=== PATIENT | female | born 1955 | race Caucasian/White ===

== ENCOUNTER 2018-09-07 12:59 | Emergency (ER) | payer SELFPAY ==
--- NOTE | 2018-09-07 16:54 | CT ---
CT ARTERIOGRAM CHEST WITH IV CONTRAST AND 3D MIP IMAGIN09/07/18 HISTORY: Chest pain. Dyspnea. FINDINGS: There is good contrast opacification of pulmonary arteries and thoracic aorta with normal branching o f the great vessels at the aortic arch. No pleural fluid or pneumothorax. Nonspecific lymph nodes thr oughout the mediastinum are most notable at the paraesophageal level. Postoperative changes of the l eft breast and left axilla. Hyperdense stones in a dependent portion of the gallbladder lumen. IMPRESSION: No CT evidence of pulmonary embolus. Cholelithiasis. POS: BST
== END 2018-09-07 16:07 | disposition home or self-care (01) ==
LOC: ERS 12:59
DX: R07.9 Chest pain, unspecified (principal); E03.9 Hypothyroidism, unspecified; I10 Essential (primary) hypertension; E78.5 Hyperlipidemia, unspecified; Z79.899 Other long term (current) drug therapy
CPT/HCPCS: 36415; 71275; 93005

== ENCOUNTER 2019-05-13 16:02 | Inpatient (IN) | payer SELFPAY ==
[2019-05-13 16:28] LABS: #Eosinphils 0.1 thou/uL (0.0-0.7); #Lymphocytes 2.3 thou/uL (1.20-3.40); #Monocytes 1.6 thou/uL (0.11-0.59); #Neutrophils 15.4 thou/uL (1.40-6.50); %Basophils 0.1 % (0.0-1.0); %Eosinophils 0.5 % (0.0-10.0); %Monocytes 8.3 % (0.0-10.0); %Neutrophils 79.1 % (42.0-75.0); Hemoglobin 13.7 g/dL (12.0-16.0); Mean Corpuscular HGB CONC 35.1 g/dL (32.0-36.0); Mean Corpuscular Hemoglobin 29.6 pg (27.0-31.0); Mean Corpuscular Volume 84.4 fL (78.0-98.0); Mean Platelet Volume 6.2 fL (7.4-10.4); Platelet Count 333 thou/uL (130-400); RBC Distribution Width 12.5 % (11.5-14.5); Red Blood Cell (RBC) Count 4.63 mill/uL (4.20-5.40); White Blood Cell (WBC) Count 19.4 thou/uL (4.8-10.8)
[2019-05-13 16:48] LABS: ALT (SGPT) 14 U/L (8-55); AST (SGOT) 14 U/L (5-34); Albumin 3.8 g/dL (3.4-4.8); Alkaline Phosphatase 96 U/L (40-150); Anion Gap 11 mmol/L (10-20); BUN (Urea Nitrogen) 25 mg/dL (9.8-20.1); Bilirubin, Total 1.6 mg/dL (0.2-1.2); Calc. Creatinine Clearance 0 mL/min (70-130); Calcium 9.6 mg/dL (7.8-10.44); Carbon Dioxide 29 mmol/L (23-31); Chloride 89 mmol/L (98-107); Estimated GFR-MDRD 20; Globulin 3.7 g/dL (2.4-3.5); Glucose 109 mg/dL (80-115); Lipase 7 U/L (8-78); Potassium 3.5 mmol/L (3.5-5.1); Protein, Total 7.5 g/dL (6.0-8.3); Sodium 125 mmol/L (136-145)
[2019-05-13] MEDS ORDERED: Rocuronium Bromide 10 MG/ML (10ML VIAL) ONE (17:46)
[2019-05-13] MEDS ORDERED: PHENYLEPHRINE-NS 100 MCG/ML 10 ML SYRINGE ONE (17:46)
[2019-05-13] MEDS ORDERED: PROPOFOL 200 MG/20 ML VIAL ONE (17:46)
[2019-05-13] MEDS ORDERED: Ondansetron PF 4 MG/2 ML Vial ONE ×2 (17:46→17:48)
[2019-05-13] MEDS ORDERED: Dexamethasone 20 MG/5 ML VIAL ONE (17:46)
[2019-05-13] MEDS ORDERED: Naloxone HCl 0.4 mg/ml Vial ONE (17:46)
[2019-05-13] MEDS ORDERED: Metoclopramide HCl 10 MG/2 ML VIAL ONE (17:46)
[2019-05-13] MEDS ORDERED: Glycopyrrolate 0.2 MG/ML 5 ML SYRINGE ONE (17:46)
[2019-05-13] MEDS ORDERED: Lidocaine 1% PF 5 ML VIAL ONE (17:46)
[2019-05-13] MEDS ORDERED: ePHEDrine 50 MG/ML VIAL ONE (17:46)
[2019-05-13] MEDS ORDERED: Morphine 4 MG/ML VIAL ONE ×2 (17:48→21:01)
--- NOTE | 2019-05-13 18:03 | ULT ---
Sonogram right upper quadrant HISTORY: Right upper quadrant pain. FINDINGS: Multiple shadowing stones and echogenic sludge are present within the dependent portion of the gallbladder lumen. Small amount of fluid around the gallbladder. Gallbladder wall thickening at 0.8 cm.. Common duct is 0.4 cm. Liver distended up to 9.9 cm. No focal liver abnormalities. IMPRESSION: Cholelithiasis. Multiple sonographic findings of acute cholecystitis.
[2019-05-13] MEDS ORDERED: Piperacillin/Tazobactam 4.5 GM VIAL ONE (18:35)
[2019-05-13 19:33] LABS: Anion Gap 13 mmol/L (10-20); BUN (Urea Nitrogen) 25 mg/dL (9.8-20.1); Calc. Creatinine Clearance 0 mL/min (70-130); Calcium 8.4 mg/dL (7.8-10.44); Carbon Dioxide 24 mmol/L (23-31); Chloride 92 mmol/L (98-107); Estimated GFR-MDRD 27; Glucose 96 mg/dL (80-115); Potassium 3.1 mmol/L (3.5-5.1); Sodium 126 mmol/L (136-145)
--- NOTE | 2019-05-13 19:50 | HP ---
CHIEF COMPLAINT: Right upper quadrant abdominal pain. HISTORY OF PRESENT ILLNESS: The patient is a 63-year-old white female. She gives a 4-year history of intermittent problems with right upper quadrant abdominal pain. She has never sought evaluation for this previously. She notes that about 3 days ago, she had a particularly severe attack and she tells me that she has been lying in bed for 3 days with pain and vomiting. She cannot explain why she did not come to the hospital sooner. She presented to the hospital this evening, where she has undergone evaluation with laboratory and radiologic studies. Her laboratory studies reveal elevated white blood cell count of 19,000. Her sodium and chloride are low. Her creatinine is elevated at 2.4. Radiologic studies include a gallbladder ultrasound, which reveals evidence of acute cholecystitis and cholelithiasis. PAST MEDICAL HISTORY: Significant for hypertension, hypothyroidism, and hypercholesterolemia. PAST SURGICAL HISTORY: Hysterectomy, myomectomy x3 previously, oophorectomy previously, left breast lumpectomy for breast cancer in 1998 (subsequently treated with radiation therapy and chemotherapy). ALLERGIES: HYDROCODONE. PERSONAL AND SOCIAL HISTORY: She is , but never had children. Her is present at bedside. 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 She does not smoke and does not drink alcohol. REVIEW OF SYSTEMS: Otherwise unremarkable. PRIMARY CARE PHYSICIAN: Dr. Fam in [place]. PHYSICAL EXAMINATION: VITAL SIGNS: She is afebrile, pulse is in the upper 90s, and blood pressure is 110/70. GENERAL: She is a well-developed, well-nourished, very pleasant white female, resting in bed, in no acute distress. She is alert and oriented x3. HEAD, EYES, EARS, NOSE, AND THROAT: Unremarkable. NECK: Supple without mass or tenderness. LUNGS: Clear to auscultation throughout. CARDIAC: Regular rate and rhythm without murmur. ABDOMEN: Soft with focal tenderness in the right upper quadrant. EXTREMITIES: Unremarkable. ASSESSMENT: The patient with acute cholecystitis. PLAN: Laparoscopic cholecystectomy. I have discussed the operation in detail with the patient as well as potential risks. She understands and agrees to proceed with surgery at this time. Job ID: [id number]
[2019-05-13] MEDS ORDERED: Bupivacaine/Epinephrine 0.25% 30 ML VIAL ONE (21:25)
[2019-05-13] MEDS ORDERED: Fentanyl 100 MCG/2 ML VIAL ONE ×2 (21:39→21:47)
[2019-05-13] MEDS ORDERED: Promethazine HCl 25 MG/ML VIAL IM PRN (23:31)
[2019-05-13] MEDS ORDERED: Meperidine HCl/PF 25 MG/ML VIAL SLOW IVP PRN (23:31)
[2019-05-13] MEDS ORDERED: HYDROmorphone 2 MG/ML VIAL SLOW IVP PRN (23:31)
[2019-05-13] MEDS ORDERED: Promethazine HCl 25 MG/ML VIAL SLOW IVP PRN (23:31)
[2019-05-13] MEDS ORDERED: Ondansetron HCl/PF 4 MG/2 ML Vial IVP PRN (23:31)
[2019-05-13] MEDS ORDERED: Labetalol HCl 100 MG/20 ML VIAL ONE (23:56)
[2019-05-14] MEDS ORDERED: Labetalol HCl 100 MG/20 ML VIAL SLOW IVP PRN (00:08)
[2019-05-14] MEDS ORDERED: Fentanyl 100 MCG/2 ML VIAL ONE (00:13)
[2019-05-14] MEDS ORDERED: Mag-Al 1200 mg/1200 mg/30 ML UDCUP PO PRN (00:29)
[2019-05-14] MEDS ORDERED: Dextrose 5% in Water 1,000 ML IV PRN (00:29)
[2019-05-14] MEDS ORDERED: Promethazine HCl 25 MG/ML VIAL IM PRN (00:29)
[2019-05-14] MEDS ORDERED: Dextrose 50% Abboject 50 ML SYRINGE SLOW IVP PRN (00:29)
[2019-05-14] MEDS ORDERED: Calcium Carbonate 500 MG ChewTAB PO PRN (00:29)
[2019-05-14] MEDS ORDERED: Ondansetron PF 4 MG/2 ML Vial IVP PRN (00:29)
[2019-05-14] MEDS ORDERED: Morphine 2 MG/ML SYRINGE SLOW IVP PRN (00:29)
[2019-05-14] MEDS ORDERED: hydrALAZINE 20 MG/ML VIAL SLOW IVP PRN (00:29)
[2019-05-14 01:42] VITALS: BMI 25.6
[2019-05-14] MEDS: Piperacillin/Tazobactam 3.375 GM in Sodium Chloride 0.9% 100 ML IVPB SCH ×4 (02:11→20:52)
[2019-05-14] MEDS: D5 1/2 NS w/20 mEq KCL 1,000 ML IV SCH ×3 (02:11→19:00)
[2019-05-14 06:10] LABS: Hemoglobin 11.6 g/dL (12.0-16.0); Mean Corpuscular HGB CONC 33.7 g/dL (32.0-36.0); Mean Corpuscular Hemoglobin 28.6 pg (27.0-31.0); Mean Corpuscular Volume 84.8 fL (78.0-98.0); Mean Platelet Volume 6.2 fL (7.4-10.4); Platelet Count 247 thou/uL (130-400); RBC Distribution Width 12.4 % (11.5-14.5); Red Blood Cell (RBC) Count 4.07 mill/uL (4.20-5.40); White Blood Cell (WBC) Count 12.6 thou/uL (4.8-10.8)
[2019-05-14 06:31] LABS: ALT (SGPT) 29 U/L (8-55); AST (SGOT) 46 U/L (5-34); Alkaline Phosphatase 79 U/L (40-150); Anion Gap 11 mmol/L (10-20); BUN (Urea Nitrogen) 16 mg/dL (9.8-20.1); Bilirubin, Total 1.1 mg/dL (0.2-1.2); Calc. Creatinine Clearance 65 mL/min (70-130); Carbon Dioxide 22 mmol/L (23-31); Chloride 100 mmol/L (98-107); Estimated GFR-MDRD 63; Globulin 2.8 g/dL (2.4-3.5); Glucose 181 mg/dL (80-115); Potassium 3.4 mmol/L (3.5-5.1); Protein, Total 5.8 g/dL (6.0-8.3); Sodium 130 mmol/L (136-145)
[2019-05-14 06:33] LABS: Band 33 % (5-11); Lymphocytes 3 % (21-51); MDiff Complete? YES; Monocytes 5 % (0-10); Neutrophil 59 % (42-75)
--- NOTE | 2019-05-14 07:57 | PDOC.GSPN ---
Surgery Progress Note: Subj - Subjective Narrative: Ms. Mcgarry is 63 y/o female post operative day #1 from a laparoscopic cholecystectomy for acute cholecystitis and cholelithiasis. This morning she says she is sore, but is not in any pain. She slept well overnight, but awoke multiple times to urinate. She does not have a sylvester catheter and is not having trouble voiding. She has not had any bowel movements yet and does not report any nausea or vomiting. She has only had water, but will begin her clear liquid diet today. Overnight she had 150 mL of serosanguinous fluid drainage from her right sided abdominal STACIE drain. She is currently on zosyn IV and maintenance IV fluids of D5 1/2 NS w/ 20 mEq KCl at a rate of 120 ml/hr. She reports a history of mild acid reflux that usually resolves with OTC omeprazole. This morning she was given famotidine 20 mg PO before breakfast. No other concerns at this time. Surgery Progress Note: Obj - Vital signs Vital signs: Vital Signs - Most Recent Temp Pulse Resp BP Pulse Ox 97.7 F 94 16 117/71 97 05/14/19 07:42 05/14/19 07:42 05/14/19 07:42 05/14/19 07:42 05/14/19 07:42 - Physical Exam General: no distress, no pain ENT: normal mucosa, other (No nasal discharge. Oral mucosa pink and moist.) Neck: other (Supple neck. No Cervical chain or supra/infraclavicular lymphadenopathy.) Cardiovascular: regular rate and rhythm, no murmur Respiratory: clear to auscultation, normal respiratory effort Abdomen: soft, non tender, other (Abdomen non tender to palpation. Hypoactive bowel sounds. STACIE drain present right lateral abdomen with slightly cloudy serosangiunous fliud.) Wound: healing well, other (No erythema from any of the laparoscopic incision sites or drain site.) Surgery Progress Note: Results - Labs Result Diagrams: 05/14/19 05:27 05/14/19 05:27 Lab results: Laboratory Results - last 24 hr 05/14/19 05/14/19 05:27 05:27 WBC 12.6 H RBC 4.07 L Hgb 11.6 L Hct 34.5 L MCV 84.8 MCH 28.6 MCHC 33.7 RDW 12.4 Plt Count 247 MPV 6.2 L Neutrophils % (Manual) 59 Band Neuts % (Manual) 33 H Lymphocytes % (Manual) 3 L Monocytes % (Manual) 5 Neutrophils # Not Reportable Lymphocytes # Not Reportable Sodium 130 L Potassium 3.4 L Chloride 100 Carbon Dioxide 22 L Anion Gap 11 BUN 16 Creatinine 0.90 Estimated GFR (MDRD) 63 Glucose 181 H Calcium 8.0 Total Bilirubin 1.1 AST 46 H ALT 29 Alkaline Phosphatase 79 Serum Total Protein 5.8 L Albumin 3.0 L Globulin 2.8 Albumin/Globulin Ratio 1.1 L Surgery Progress Note: A/P - Plan Plan: Ms. Mcgarry is a 63 y/o female post operative day #1 from a laparoscopic cholecystectomy for acute cholecystitis and cholelithiasis. She is recovering well today and does not have any pain. Since there was significant amount of pus during her cholesystectomy she was started on zosyn and should continue on zosyn for today. Peritoneal fluid cultures show few gram positive cocci in pairs and chains, which may indicate enterococcus, but should not change our choice of antibiotic regimen. Her WBC count has decreased to 12.6 today, but she still has a bandemia likely due to recent bacterial infection of her gallbladder. Her hemoglobin dropped from 13.7 pre-op to 11.6 this morning. Plan is to monitor these parameters with daily CBC. Her pre-operative VINAY has resolved and this morning she had a Creatinine at 0.6 and BUN at 16. She has been on maintenance IVF and her electrolytes are almost completely normal except for sodium, which is still decreased at 130. She will begin her clear liquid diet today and if she is tolerating it, we can take her off maintenance IVF. She has not yet had a bowel movement, but we will monitor her as she progresses her diet. She was given famotidine this morning to prevent gastric acid reflux. She has some post operative hyperglycemia (181 this am) and plan is to just monitor for return to normal limits given that she does not have a history of diabetes. She has been encouraged to ambulate and use incentive spirometry.
[2019-05-14] MEDS: Famotidine 20 MG TAB PO SCH (08:28)
[2019-05-14] MEDS: Famotidine/PF 20 mg/2ml Vial SLOW IVP SCH (08:33)
[2019-05-14] MEDS: Morphine 4 MG/ML VIAL SLOW IVP PRN ×2 (14:37→21:02)
[2019-05-15] MEDS: D5 1/2 NS w/20 mEq KCL 1,000 ML IV SCH ×3 (00:37→19:56)
[2019-05-15] MEDS: Piperacillin/Tazobactam 3.375 GM in Sodium Chloride 0.9% 100 ML IVPB SCH ×4 (02:47→19:56)
[2019-05-15 08:21] LABS: #Eosinphils 0.1 thou/uL (0.0-0.7); #Lymphocytes 1.3 thou/uL (1.20-3.40); #Monocytes 1.2 thou/uL (0.11-0.59); #Neutrophils 10.3 thou/uL (1.40-6.50); %Basophils 0.2 % (0.0-1.0); %Eosinophils 0.6 % (0.0-10.0); %Lymphocytes 10.4 % (21.0-51.0); %Monocytes 9.3 % (0.0-10.0); %Neutrophils 79.5 % (42.0-75.0); Hemoglobin 11.4 g/dL (12.0-16.0); Mean Corpuscular HGB CONC 34.1 g/dL (32.0-36.0); Mean Corpuscular Hemoglobin 29.1 pg (27.0-31.0); Mean Corpuscular Volume 85.2 fL (78.0-98.0); Mean Platelet Volume 6.2 fL (7.4-10.4); Platelet Count 302 thou/uL (130-400); RBC Distribution Width 12.4 % (11.5-14.5); Red Blood Cell (RBC) Count 3.93 mill/uL (4.20-5.40); White Blood Cell (WBC) Count 12.9 thou/uL (4.8-10.8)
--- NOTE | 2019-05-15 08:39 | RAD ---
CHEST 1 VIEW: HISTORY: Chest pain. Hypoxia. COMPARISON: Radiograph 2015. FINDINGS: There is a small left pleural effusion. There appears to be a drain projecting over the abdomen. Mild atelectatic changes. No pneumothorax. Left axillary surgical clips. IMPRESSION: 1. Hypoinflation with small left effusion. 2. Appearance of a drain projecting over the abdomen. 3. No pneumothorax. POS: CET
[2019-05-15] MEDS: Famotidine 20 MG TAB PO SCH (09:10)
[2019-05-15] MEDS: Famotidine/PF 20 mg/2ml Vial SLOW IVP SCH (09:12)
--- NOTE | 2019-05-15 15:36 | PRG ---
DATE OF SERVICE: 05/15/2019 SUBJECTIVE: Ms. Mcgarry is postoperative day #2 from a laparoscopic cholecystectomy for gangrenous cholecystitis. Yesterday, she had problems maintaining adequate oxygen saturation on room air and she had essentially no appetite. Today, her oxygen saturation is improved. It is running around 94% to 95% on room air. She clearly looks and feels better. She still has had no flatus or bowel movement. She notes her discomfort seems to be better. OBJECTIVE: VITAL SIGNS: On examination, she remains afebrile. Pulse is 86, blood pressure 157/81. GENERAL: She is alert and in better spirits. HEAD, EYES, EARS, NOSE, AND THROAT: Unremarkable. NECK: Supple. LUNGS: Clear to auscultation anteriorly. CARDIAC: Regular rate and rhythm. ABDOMEN: Soft. Incisions appear to be healing nicely. There are no audible bowel sounds. Drain is still draining opaque serosanguineous fluid. There is no evidence of bile. EXTREMITIES: Unremarkable. LABORATORY DATA: CBC reveals a white blood cell count is elevated at 12.9, hemoglobin stable at 11.4. Chemistry profile was not obtained today. ASSESSMENT: She still does not appear to be adequately recuperated from her significant infectious process. Her cultures reveal two separate gram-negative rods and Strep. She does continue to receive Zosyn. I recommend another day of IV antibiotics and observation. I suspect she has some degree of ileus related to her cholecystitis that is still resolving. I would anticipate discharge tomorrow. Job ID: [id number]
[2019-05-16] MEDS: Piperacillin/Tazobactam 3.375 GM in Sodium Chloride 0.9% 100 ML IVPB SCH (02:55)
[2019-05-16 06:44] LABS: #Eosinphils 0.2 thou/uL (0.0-0.7); #Lymphocytes 1.7 thou/uL (1.20-3.40); #Monocytes 1.1 thou/uL (0.11-0.59); #Neutrophils 7.7 thou/uL (1.40-6.50); %Basophils 0.2 % (0.0-1.0); %Lymphocytes 16.2 % (21.0-51.0); %Monocytes 10.2 % (0.0-10.0); %Neutrophils 71.4 % (42.0-75.0); Hemoglobin 10.8 g/dL (12.0-16.0); Mean Corpuscular HGB CONC 34.9 g/dL (32.0-36.0); Mean Corpuscular Hemoglobin 29.5 pg (27.0-31.0); Mean Corpuscular Volume 84.4 fL (78.0-98.0); Mean Platelet Volume 6.3 fL (7.4-10.4); Platelet Count 276 thou/uL (130-400); RBC Distribution Width 12.3 % (11.5-14.5); Red Blood Cell (RBC) Count 3.67 mill/uL (4.20-5.40); White Blood Cell (WBC) Count 10.7 thou/uL (4.8-10.8)
[2019-05-16 07:09] LABS: ALT (SGPT) 38 U/L (8-55); AST (SGOT) 30 U/L (5-34); Albumin 2.9 g/dL (3.4-4.8); Alkaline Phosphatase 93 U/L (40-150); Anion Gap 11 mmol/L (10-20); BUN (Urea Nitrogen) 5 mg/dL (9.8-20.1); Bilirubin, Total 0.8 mg/dL (0.2-1.2); Calc. Creatinine Clearance 99 mL/min (70-130); Calcium 8.3 mg/dL (7.8-10.44); Carbon Dioxide 23 mmol/L (23-31); Chloride 103 mmol/L (98-107); Estimated GFR-MDRD Greater than 90; Globulin 2.9 g/dL (2.4-3.5); Glucose 111 mg/dL (80-115); Potassium 3.2 mmol/L (3.5-5.1); Protein, Total 5.8 g/dL (6.0-8.3); Sodium 134 mmol/L (136-145)
[2019-05-16 09:03] VITALS: BP 163/82; TEMP 98.1
--- NOTE | 2019-05-17 01:04 | DIS ---
DATE OF ADMISSION: 05/13/2019 DATE OF DISCHARGE: 05/16/2019 ADMISSION DIAGNOSIS: Acute cholecystitis. DISCHARGE DIAGNOSIS: Gangrenous cholecystitis with acute kidney injury secondary to hypovolemia. PROCEDURE PERFORMED: Laparoscopic cholecystectomy on 05/13/2019. ADMISSION HISTORY: The patient is a 63-year-old white female. She had presented to the emergency room with 3 days history of severe abdominal pain with nausea and vomiting. At the time that she presented, she had marked leukocytosis as well as abnormal electrolytes and elevated creatinine consistent with hypovolemic acute kidney injury. She was rehydrated and taken to the operating room. HOSPITAL COURSE: She was rehydrated appropriately intravenously and taken to the operating room the evening that she had presented for laparoscopic cholecystectomy. She had purulent biliary material present within her abdominal cavity at the time of surgery. She had purulent material draining out of her gallbladder at the time of her surgery secondary to a gangrenous segment. Cultures of this revealed E coli, Klebsiella, and Enterococcus. She has been on IV antibiotics since her surgery and her organisms were well covered by the Zosyn that she has been receiving. Since surgery, it has taken a while for her to normalize to the point that she is stable for discharge home. She initially was hypoxic and unable to take a deep breath or cough. This was producing atelectasis. She subsequently had evidence of an ileus with inadequate oral intake and essentially no bowel sounds. As of today, postoperative day #3, she clearly feels much better. She is ventilating much better and her oxygenation is stable off supplemental oxygen. Her pain is minimal and she is requiring no more narcotics. Her vital signs within normal limits and her laboratory studies are unremarkable. She is stable for discharge home at this time. Her STACIE drain that is subhepatic will be removed prior to her discharge. She will follow up with myself in 10-14 days. At this point, she requires no further antibiotics or prescription pain medication. Job ID: [id number]
--- NOTE | 2019-05-17 21:05 | OP ---
DATE OF PROCEDURE: 05/13/2019 PREOPERATIVE DIAGNOSIS: Acute cholecystitis. POSTOPERATIVE DIAGNOSES: Acute cholecystitis with findings of gangrenous cholecystitis. PROCEDURE PERFORMED: Laparoscopic cholecystectomy. ANESTHESIA: General endotracheal. INDICATIONS: The patient is a 63-year-old white female. She presented to the hospital today with severe right upper quadrant abdominal pain. She had been sick at home for about 3 days before she came to the hospital. This had led to acute kidney injury secondary to hypovolemia. She was taken to the operating room on the day of her admission for laparoscopic cholecystectomy. DESCRIPTION OF OPERATION: Informed consent was obtained. The patient was taken to the operating room where general endotracheal anesthesia was obtained with the patient in supine position. Abdomen was prepped with ChloraPrep and draped in sterile fashion. Local anesthetic was infiltrated and a 5 mm right upper quadrant incision was created through which a Veress needle was passed into the peritoneal cavity. Pneumoperitoneum was established using carbon dioxide up to pressure of 15 mmHg. A 5 mm trocar port was established through the same incision. Laparoscopic camera was passed through this port. Under direct vision, an 11 mm infraumbilical port was placed. There were no adhesions to the anterior abdominal wall inferiorly. Two additional 5 mm right upper quadrant ports were placed in the usual location. Attention was turned to the gallbladder. There was noted to be extensive inflammatory adhesions to the gallbladder and liver. There was green stained fluid in the perihepatic space. As I mobilized the omentum off the gallbladder, there was an obvious gangrenous segment at the fundus of the gallbladder from which purulent and bilious material was draining. I grasped the fundus of the gallbladder and retracted it in a cephalad direction. I continued to dissect the adhesions off the gallbladder. As the gallbladder was manipulated, further purulent material drained out of the opening in the gallbladder. Some gallstones were expressed as well and these were all retrieved. The apex of the gallbladder was identified, but it was difficult to visualize this area secondary to the severe inflammatory change. I therefore placed another 5 mm port in the left mid abdomen and through this passed a triangle retractor into the abdomen that I used to retract the duodenum and periduodenal fat so as to visualize the structures at the apex. I was then able to carefully dissect the cystic duct and cystic artery. Neither of these was enlarged. These were dissected circumferentially and divided between clips leaving 2 on the side to remain within the abdomen. The gallbladder was then carefully dissected out of the gallbladder fossa using electrocautery. Meticulous hemostasis was maintained. The gallbladder was placed in a specimen retrieval sac, which was then removed through the umbilical port site. The fascia was closed with 0 Vicryl suture using a GraNee needle. A #19 round fluted drain was obtained and brought out through the inferior right lateral port. This was secured externally with a 3-0 nylon suture. It was positioned in the subhepatic space. The abdominal cavity was copiously irrigated using 3 L of irrigant. All of the bilious and purulent material was aspirated out of the perihepatic area as well as out of the pelvis. All ports and instruments were removed under direct vision. Pneumoperitoneum was carefully evacuated. 0.25% Marcaine with epinephrine was infiltrated at each port site. Skin edges were approximated with 4-0 Monocryl subcuticular suture. Dermabond was placed externally. There were no complications. The patient tolerated the procedure well and was taken to recovery room in stable condition. Job ID: [id number]
== END 2019-05-16 11:04 | disposition home or self-care (01) | DRG 418 ==
LOC: ERS 16:02 → SDC/OP 19:20 → SURG B 23:51
PROVIDERS: ADMIT Specialist; ATTEND Specialist
PROC: 0FT44ZZ Resection of Gallbladder, Percutaneous Endoscopic Approach (ICD-10-PCS; principal; 2019-05-13)
DX: K80.00 Calculus of gallbladder with acute cholecystitis without obstruction (principal); N17.9 Acute kidney failure, unspecified; J98.11 Atelectasis; K56.7 Ileus, unspecified; I10 Essential (primary) hypertension; E03.9 Hypothyroidism, unspecified; E78.00 Pure hypercholesterolemia, unspecified; R73.9 Hyperglycemia, unspecified; K82.A1 Gangrene of gallbladder in cholecystitis; E86.1 Hypovolemia; B96.20 Unspecified Escherichia coli [E. coli] as the cause of diseases classified elsewhere; B96.1 Klebsiella pneumoniae [K. pneumoniae] as the cause of diseases classified elsewhere; B95.2 Enterococcus as the cause of diseases classified elsewhere; R09.02 Hypoxemia; Z90.710 Acquired absence of both cervix and uterus; Z85.3 Personal history of malignant neoplasm of breast; Z92.21 Personal history of antineoplastic chemotherapy; Z92.3 Personal history of irradiation; Z88.8 Allergy status to other drugs, medicaments and biological substances
CPT/HCPCS: 36415; 71045; 76705; 80053; 83690; 85025; 87070; 87077; 87186; 87205; 88304; 94640; 96361; 96365; 96375; J1100; J2001; J2270; J2310; J2405; J2543; J2704; J2765; J3010; J3490; J7620